=== PATIENT | male | born 1990 | race Caucasian/White ===

== ENCOUNTER 2016-08-17 03:18 | Emergency (ER) | payer SELFPAY ==
--- NOTE | 2016-08-17 06:07 | ER ---
ADMIT: 08/17/2016 RM/LOC: ER [facility] MR#: [id number] [facility] [address], [place] [address] NEIL ARRIAZA [address], [place] [id number] Emergency Room Report SEX: M AGE: 26 : 1990 DATE: 08/17/2016 The patient is a 26-year-old male, in police custody for resisting arrest. Exam remarkable for nontoxic, afebrile male. Complaining only this cuffs are too tight, released in police custody. Travis Rayo MD/ juan pablo JOB #: [id number] CC: Travis Rayo MD, Attending Physician Karla Maciel MD, Family Physician Karla Maciel MD
== END 2016-08-17 03:30 ==
LOC: ER 03:18
DX: F10.129 Alcohol abuse with intoxication, unspecified (principal)